=== PATIENT | female | born 1990 | race Hispanic/Latino ===

== ENCOUNTER 2017-08-05 15:16 | Emergency (ER) | payer OTHER, BC ==
[2017-08-05 15:30] VITALS: BP 111/75; PULSE 59; RESP 19; TEMP 98.5; O2SAT 100
--- NOTE | 2017-08-05 16:00 | ED PDOC ---
HPI: Skin/Bite Injury Time Seen by Provider: 08/05/17 15:52 Chief Complaint (Nursing): Needle Stick Chief Complaint (Provider): Needle stick History Per: Patient History/Exam Limitations: no limitations Onset/Duration Of Symptoms: Mins Current Symptoms Are (Timing): Still Present Location Of Injury: Right: Hand (thumb) Additional History Per: Patient Additional Complaint(s): 27yo female, presents to ER for evaluation of a needlestick injury. 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 She has no other complaints. She reports no pain, no numbness and has no other complaints. Reports irrigating the wound immediately. Past Medical History Reviewed: Historical Data, Nursing Documentation, Vital Signs Vital Signs: Last Vital Signs Temp 98.5 F 08/05/17 15:26 Pulse 59 L 08/05/17 15:26 Resp 19 08/05/17 15:26 BP 111/75 08/05/17 15:26 Pulse Ox 100 08/05/17 16:35 - Medical History PMH: No Chronic Diseases - Surgical History Surgical History: No Surg Hx - Family History Family History: States: No Known Family Hx - Allergies Allergies/Adverse Reactions: Allergies Allergy/AdvReac Type Severity Reaction Status Date / Time Sulfa (Sulfonamide Allergy SHORTNESS Verified 08/05/17 15:30 Antibiotics) OF BREATH Review of Systems Skin: Positive for: Other (needle stick injury right thumb) Physical Exam - Reviewed Nursing Documentation Reviewed: Yes Vital Signs Reviewed: Yes - Physical Exam Comments: GENERAL APPEARANCE: Patient is awake, alert, oriented x 3, in no acute distress. SKIN: Warm, dry; (-) cyanosis. HAND: Right hand : (+) puncture wound to the distal tip of the thumb. No active bleeding. No swelling or discharge noted. FROM. Capillary refill < 2 seconds. NEURO AND PSYCH: Mental status as above. - ECG O2 Sat by Pulse Oximetry: 100 (RA) Pulse Ox Interpretation: Normal Medical Decision Making Medical Decision Making: Impression: Needle stick injury Plan: -- labs Patient refusing labs and HIV prophylaxis at present, which based on the nature of the injury is not clinically warranted as the patient was exposed to urine and not blood. Advised to follow up with [facility] without fail. Return to the emergency room at any time for any new or worsening symptoms. Patient states she fully agrees with and understands discharge instructions. States that she agrees with the plan and disposition. Verbalized and repeated discharge instructions and plan. I have given the patient opportunity to ask any additional questions. Scribe Attestation: Documented by Lisa Leon acting as a scribe for KRYSTEN Puentes. Provider Scribe Attestation: All medical record entries made by the Scribe were at my direction and personally dictated by me. I have reviewed the chart and agree that the record accurately reflects my personal performance of the history, physical exam, medical decision making, and the department course for this patient. I have also personally directed, reviewed, and agree with the discharge instructions and disposition. Disposition - Clinical Impression Clinical Impression: Needle stick injury - Patient ED Disposition Is Patient to be Admitted: No Counseled Patient/Family Regarding: Need For Followup - Disposition Disposition: Routine/Home Disposition Time: 16:00 Condition: STABLE Additional Instructions: Follow up with employee health in 2 days without fail. Forms: [employer] (Eth[place]ian) - PA / CHOIR MEMBER / Resident Statement MD/DO has reviewed & agrees with the documentation as recorded.
== END 2017-08-05 16:42 | disposition home or self-care (01) ==
LOC: H.ER 15:16
DX: S69.91XA Unspecified injury of right wrist, hand and finger(s), initial encounter (principal); W46.0XXA Contact with hypodermic needle, initial encounter; Y99.0 Civilian activity done for income or pay

== ENCOUNTER 2017-10-01 19:52 | Emergency (ER) | payer OTHER ==
[2017-10-01 20:05] VITALS: BP 120/80; PULSE 66; RESP 19; TEMP 97.7; O2SAT 98
[2017-10-01] MEDS ORDERED: Naproxen 500 MG TAB PO STA (20:20)
[2017-10-01] MEDS ORDERED: Naproxen 500 MG TAB PO ONE (20:48)
--- NOTE | 2017-10-01 20:56 | ED PDOC ---
Lower Extremity Pain/Injury Time Seen by Provider: 10/01/17 20:19 Chief Complaint (Nursing): Lower Extremity Problem/Injury History Per: Patient History/Exam Limitations: no limitations Additional Complaint(s): 27 yo F c/o R ankle and foot pain sfter she twisted her ankle while walking down the stairs on her way out of the hospital. Of note, the patient works as a RN at [employer]. Denies any numbness, decrease in ROM, or any other injury. Reports no head injury or LOC. Past Medical History Vital Signs: Last Vital Signs Temp 97.7 F 10/01/17 20:01 Pulse 66 10/01/17 20:01 Resp 19 10/01/17 20:01 BP 120/80 10/01/17 20:01 Pulse Ox 98 10/01/17 20:01 - Family History Family History: States: No Known Family Hx - Allergies Allergies/Adverse Reactions: Allergies Allergy/AdvReac Type Severity Reaction Status Date / Time Sulfa (Sulfonamide Allergy SHORTNESS Verified 08/05/17 15:30 Antibiotics) OF BREATH Review of Systems Constitutional: Negative for: Fever, Malaise Musculoskeletal: Negative for: Neck Pain, Back Pain, Foot Pain Skin: Negative for: Rash, Lesions Physical Exam - Reviewed Vital Signs Reviewed: Yes - Physical Exam Appears: Positive for: Well, Non-toxic, No Acute Distress Skin: Positive for: Normal Color, Warm, Dry. Negative for: Rash Pulses-Dorsalis Pedis (L): 2+ Extremity: Positive for: Normal ROM, Capillary Refill (<2 sec). Negative for: Tenderness, Deformity, Swelling Neurologic/Psych: Positive for: Alert, gis administrator II-XII (intact), Oriented (x3). Negative for: Motor/Sensory Deficits - ECG O2 Sat by Pulse Oximetry: 98 Medical Decision Making Medical Decision Making: Plan : - XR R ankle - XR R foot - Naprosyn PO XR R ankle / foot : no fracture, no dislocation, as read by KRYSTEN. Patient advised that today's XR reading is preliminary and final radiology reading will be performed in 24 hours, the patient will be contacted for any discrepancies. X-ray results discussed with the patient in great detail. Je applied. Patient instructed to rest, ice and elevate the ankle. Patient instructed to follow-up with pmd in 1-2 days without fail. Advised to take motrin prn for pain. Return to the emergency room at any time for any new or worsening symptoms. Patient states she fully agrees with and understands discharge instructions. States that she agrees with the plan and disposition. Verbalized and repeated discharge instructions and plan. I have given the patient opportunity to ask any additional questions. Disposition - Clinical Impression Clinical Impression: Ankle sprain - Patient ED Disposition Is Patient to be Admitted: No Counseled Patient/Family Regarding: Studies Performed, Diagnosis, Need For Followup - Disposition Disposition: Routine/Home Disposition Time: 21:15 Condition: STABLE Additional Instructions: Thank you for letting us take care of you today. You were treated for ankle sprain. The emergency medical care you received today was directed towards the acute presenting symptoms. Rest, ice and elevate. Take motrin as needed for pain. Return to the Emergency Department at any time if symptoms worsen, do not improve, or if any other problems arise. Please contact your doctor in 2 days for re-evaluation and follow up. Bring any paperwork you were given at discharge with you along with any medications to your follow up visit. Our treatment cannot replace ongoing medical care by a primary care provider (PCP) outside of the emergency department. Thank you for allowing the [facility] team to be part of your care today. If you had an X-Ray : A Radiologist will review the ED reading if any change in treatment is needed we will contact you. Instructions: Ankle Sprain (DC) Forms: [employer] (Kinyarwanda) - PA / CHORUS MASTER / Resident Statement MD/DO has reviewed & agrees with the documentation as recorded.
--- NOTE | 2017-10-02 09:04 | RAD ---
Date of service: 10/01/2017 PROCEDURE: Right Ankle Radiographs. HISTORY: pain COMPARISON: None FINDINGS: BONES: No acute fracture. JOINTS: Ankle mortise maintained. Talar dome intact SOFT TISSUES: Normal. OTHER FINDINGS: None. IMPRESSION: No demonstrated fracture or dislocation.
--- NOTE | 2017-10-02 09:05 | RAD ---
Date of service: 10/01/2017 PROCEDURE: Right Foot Radiographs. HISTORY: pain COMPARISON: None. FINDINGS: BONES: No acute fracture. JOINTS: Unremarkable. SOFT TISSUES: Normal. OTHER FINDINGS: None. IMPRESSION: No demonstrated fracture or dislocation.
== END 2017-10-01 21:42 | disposition home or self-care (01) ==
LOC: H.ER 19:52
DX: S93.402A Sprain of unspecified ligament of left ankle, initial encounter (principal); X50.9XXA Other and unspecified overexertion or strenuous movements or postures, initial encounter; Y99.0 Civilian activity done for income or pay